=== PATIENT | female | born 1960 | race Hispanic/Latino ===

== ENCOUNTER 2019-07-15 06:02 | Day surgery (SDC) | payer OTHER, MEDICARE ==
[2019-07-15] VITALS (12 sets, daily range): BP systolic 100–121; BP diastolic 60–76
[~2019-07-15] VITALS: Ht 154.9 cm; Wt 70.3 kg
[2019-07-15] MEDS ORDERED: PROPOFOL 10 MG/ML 20ML VIAL IV ONE ×2 (06:33→06:34)
[2019-07-15] MEDS ORDERED: LIDOCAINE HCL 1% 20 ML VIAL ONE (06:34)
[2019-07-15] MEDS ORDERED: CEFAZOLIN SODIUM 1 GM VIAL ONE (06:58)
[2019-07-15] MEDS ORDERED: PHENYLEPHRINE HCL 10 MG/ML 1ML VIAL IV ONE (07:13)
[2019-07-15] MEDS ORDERED: SODIUM CHLORIDE 0.9% 10 ML VIAL ONE (07:14)
[2019-07-15] MEDS ORDERED: ONDA8TAB12 PO (08:26)
[2019-07-15] MEDS ORDERED: OMEP40CA13 PO (08:27)
[2019-07-15] MEDS ORDERED: ACYC400T PO (08:27)
[2019-07-15] MEDS ORDERED: ERGO50CA PO (08:27)
[2019-07-15] MEDS ORDERED: PANT40TA25 PO (08:28)
[2019-07-15] MEDS ORDERED: SERT50TA12 PO (08:28)
[2019-07-15] MEDS ORDERED: BUSP5TAB3 PO (08:28)
[2019-07-15] MEDS ORDERED: VITA-380 PO (08:29)
[2019-07-15] MEDS ORDERED: [UNRECOGNIZED DRUG - OTHER] PO (08:33)
== END 2019-07-15 08:15 | disposition home or self-care (01) ==
LOC: DAH 06:02
PROVIDERS: ATTEND Internal Medicine
DX: R13.10 Dysphagia, unspecified (principal); K29.70 Gastritis, unspecified, without bleeding; K31.89 Other diseases of stomach and duodenum; K44.9 Diaphragmatic hernia without obstruction or gangrene; K21.9 Gastro-esophageal reflux disease without esophagitis; M19.90 Unspecified osteoarthritis, unspecified site; M81.0 Age-related osteoporosis without current pathological fracture; H40.9 Unspecified glaucoma; K64.9 Unspecified hemorrhoids; R63.4 Abnormal weight loss; Z90.710 Acquired absence of both cervix and uterus; Z90.49 Acquired absence of other specified parts of digestive tract; Z98.890 Other specified postprocedural states; Z86.010 Personal history of colon polyps; Z79.899 Other long term (current) drug therapy; Z83.3 Family history of diabetes mellitus; Z82.49 Family history of ischemic heart disease and other diseases of the circulatory system
CPT/HCPCS: 43246; A4215 ×2; A4221 ×2; A4222 ×2; A4223 ×2; A4606 ×2; A4615 ×2; A4663 ×2; J0690; J2370; J2704 ×2

== ENCOUNTER → 2019-08-15 | Outpatient (CLI) | payer OTHER, MEDICARE ==
[~2019-08-15] MED LIST: ACYC400T PO; BUSP5TAB3 PO; DIATR MEGLU/DIATRIZOATE SODIUM 30 ML BOTTLE ONE; ERGO50CA PO; OMEP40CA13 PO; ONDA8TAB12 PO; PANT40TA25 PO; SERT50TA12 PO; VITA-380 PO; [UNRECOGNIZED DRUG - OTHER] PO
== END | disposition home or self-care (01) ==
LOC: RAH 08:06
PROVIDERS: ATTEND Internal Medicine Gastroenterology
DX: K94.20 Gastrostomy complication, unspecified (principal)
CPT/HCPCS: 74018; Q9963

== ENCOUNTER → 2019-12-20 | Outpatient (CLI) | payer OTHER, MEDICARE ==
[~2019-12-20] MED LIST changes: -DIATR MEGLU/DIATRIZOATE SODIUM 30 ML BOTTLE ONE
--- NOTE | 2019-12-20 12:32 | NUR ---
MBSS COMPLETED. ASPIRATION WITH THIN LIQUIDS AND NECTAR-THICK LIQUIDS VIA CUP SIP. RECOMMEND PLEASURE FEEDS OF PUREED AND NECTAR-THICK LIQUIDS VIA TSP. RECOMMENDATIONS: 1. SKILLED SPEECH THERAPY 2-3XWK 2. MBSS RE-EVAL IN 4-6 WEEKS NEONATAL INTENSIVE CARE UNIT NURSE PROVIDED RESULTS AND RECOMMENDATIONS VIA WRITTEN MODALITY. NEONATAL INTENSIVE CARE UNIT NURSE PROVIDED A CAN OF THICKENER AND THICKENING INSTRUCTIONS. ALL QUESTIONS ANSWERED AT THIS TIME. Addendum: 12/20/19 at 1237 by KD BRIAN, [facility] Amended: Links added.
== END | disposition home or self-care (01) ==
LOC: RAH 09:17
PROVIDERS: ATTEND Otolaryngology
DX: C32.9 Malignant neoplasm of larynx, unspecified (principal); R13.13 Dysphagia, pharyngeal phase
CPT/HCPCS: 74230; 92611

== ENCOUNTER → 2020-02-23 | Outpatient (CLI) | payer OTHER, MEDICARE ==
--- NOTE | 2020-02-23 10:00 | NUR ---
MBSS COMPLETED. RECOMMEND THE CONTINUATION OF [facility] ALTERNATE MEANS OF NUTRITION/HYDRATION. MAILER REVIEWED RESULTS WITH Pt AND DAUGHTER PRESENT DURING MBSS. SPEECH THERAPY WAS HIGHLY RECOMMENDED. ALL QUESTIONS ANSWERED AT THIS TIME. Addendum: 02/23/[address] [facility] Amended: Links added.
== END | disposition home or self-care (01) ==
LOC: RAH 08:52
PROVIDERS: ATTEND Otolaryngology
DX: R13.19 Other dysphagia (principal); Z90.02 Acquired absence of larynx
CPT/HCPCS: 74230; 92611

== ENCOUNTER → 2020-02-28 | Outpatient (CLI) | payer OTHER, MEDICARE ==
[~2020-02-28] MED LIST changes: +CICL60SU2 TP; +DIATR MEGLU/DIATRIZOATE SODIUM 30 ML BOTTLE ONE; -PANT40TA25 PO; +PANT40TA54 PO
== END | disposition home or self-care (01) ==
LOC: RAH 13:01
PROVIDERS: ATTEND Internal Medicine Gastroenterology
DX: K94.20 Gastrostomy complication, unspecified (principal)
CPT/HCPCS: 74018; Q9963

== ENCOUNTER → 2020-04-27 | Outpatient (CLI) | payer OTHER, MEDICARE ==
[~2020-04-27] MED LIST changes: -DIATR MEGLU/DIATRIZOATE SODIUM 30 ML BOTTLE ONE; +PANT40TA25 PO; -PANT40TA54 PO
[2020-04-27 14:49] LABS: CREATININE 0.7 mg/dL (0.5-1.5)
== END | disposition home or self-care (01) ==
LOC: LAB 14:08
PROVIDERS: ATTEND Internal Medicine
DX: C32.9 Malignant neoplasm of larynx, unspecified (principal); R22.1 Localized swelling, mass and lump, neck; Z85.21 Personal history of malignant neoplasm of larynx
CPT/HCPCS: 36415; 82565; 84520

== ENCOUNTER → 2020-05-03 | Outpatient (CLI) | payer OTHER, MEDICARE ==
[~2020-05-03] MED LIST changes: -CICL60SU2 TP; +IOHEXOL-350 50ML VIAL IV ONE
== END | disposition home or self-care (01) ==
LOC: RAH 12:14
PROVIDERS: ATTEND Otolaryngology
DX: M79.89 Other specified soft tissue disorders (principal); Z09 Encounter for follow-up examination after completed treatment for conditions other than malignant neoplasm; Z85.21 Personal history of malignant neoplasm of larynx
CPT/HCPCS: 70491; Q9967

== ENCOUNTER → 2020-05-15 | Outpatient (CLI) | payer OTHER, MEDICARE ==
[~2020-05-15] MED LIST changes: +DIATR MEGLU/DIATRIZOATE SODIUM 30 ML BOTTLE ONE; -IOHEXOL-350 50ML VIAL IV ONE
== END | disposition home or self-care (01) ==
LOC: RAH 12:03
PROVIDERS: ATTEND Internal Medicine Gastroenterology
DX: K94.20 Gastrostomy complication, unspecified (principal)
CPT/HCPCS: 74018; Q9963

== ENCOUNTER 2020-05-29 01:05 | Inpatient (IN) | payer OTHER, MEDICARE ==
[~2020-05-29] VITALS: Ht 154.9 cm; Wt 65.8 kg
[~2020-05-29 01:05] MED LIST changes: -DIATR MEGLU/DIATRIZOATE SODIUM 30 ML BOTTLE ONE; -PANT40TA25 PO; +PANT40TA54 PO
[2020-05-29 01:50] VITALS: BP 108/67
[2020-05-29] MEDS ORDERED: HYDROMORPHONE 1 MG/1 ML AMP IV PRN (02:30)
[2020-05-29] MEDS ORDERED: POTASSIUM CHLORIDE 20MEQ/100ML 100 ML IV PRN (02:30)
[2020-05-29] MEDS ORDERED: DiphenhydrAMINE HCL 50 MG/ML VIAL IV PRN (02:30)
[2020-05-29] MEDS ORDERED: LIDOCAINE HCL-MPF 1% 2ML VIAL IV PRN (02:30)
[2020-05-29] MEDS ORDERED: HYDRALAZINE HCL 20 MG/ML VIAL IV PRN (02:30)
[2020-05-29] MEDS ORDERED: ACETAMINOPHEN 650 MG SUPPOSITORY RC PRN (02:45)
[2020-05-29] MEDS ORDERED: HYDROMORPHONE HCL 0.5 MG/0.5 ML ML ONE (02:54)
[2020-05-29 03:51] VITALS: BP 95/60
[2020-05-29 08:09] VITALS: BP 118/66
[2020-05-29] MEDS: FAMOTIDINE/PF 20 MG/2 ML VIAL IV SCH ×2 (08:25→20:57)
[2020-05-29] MEDS: ENOXAPARIN SODIUM 40 MG/0.4 ML SYRINGE SQ SCH (08:26)
[2020-05-29 11:03] VITALS: BP 111/61
[2020-05-29] MEDS: MORPHINE SULFATE 2 MG/ML 1ML SYG IV PRN (11:21)
[2020-05-29] MEDS: SODIUM CHLORIDE 0.9% 1000ML 1,000 ML IV SCH ×2 (11:22→23:05)
[2020-05-29] MEDS: ONDANSETRON HCL 4 MG/2 ML VIAL IV PRN (11:28)
[2020-05-29 12:37] LABS: ALBUMIN 3.3 g/dL (3.5-5.0); BILIRUBIN,TOTAL 3.1 mg/dL (0.2-1.0); CREATININE 0.7 mg/dL (0.5-1.5); POTASSIUM 3.8 mmol/L (3.5-5.1); TOTAL PROTEIN, SERUM 6.9 g/dL (6.0-8.3)
[2020-05-29 13:57] LABS: BILIRUBIN,DIRECT 1.4 mg/dL (0.0-0.3)
[2020-05-29 16:22] VITALS: BP 116/71
[2020-05-29 20:00] VITALS: BP 125/66
[2020-05-30] VITALS (7 sets, daily range): BP systolic 109–124; BP diastolic 52–83
[2020-05-30 03:44] LABS: BASOPHILS % (AUTO) 0.3 % (0.0-5.0); HEMATOCRIT 34.6 % (36-48); MEAN CORPUSCULAR HEMOGLOBIN 28.1 pg (27.0-33.0); MEAN CORPUSCULAR HGB CONC 31.8 g/dL (32.0-36.0); MEAN CORPUSCULAR VOLUME 88.5 fL (79-99); NEUTROPHILS % (AUTO) 77.5 % (40.0-77.0); PLATELET COUNT (AUTO) 192 K/uL (130-400); RED BLOOD CELL COUNT(AUTO) 3.91 MIL/uL (4.00-5.50); RED CELL DISTRIBUTION WIDTH 13.3 % (11.0-15.5); WHITE BLOOD COUNT (AUTO) 5.8 K/uL (4.8-10.8)
[2020-05-30 04:04] LABS: ALBUMIN 3.2 g/dL (3.5-5.0); CREATININE 0.6 mg/dL (0.5-1.5); MAGNESIUM 2.5 mg/dL (1.80-2.40); PHOSPHORUS 2.6 mg/dL (2.5-4.9); TOTAL PROTEIN, SERUM 6.8 g/dL (6.0-8.3)
[2020-05-30] MEDS: ONDANSETRON HCL 4 MG/2 ML VIAL IV PRN ×2 (08:01→21:38)
[2020-05-30] MEDS: ENOXAPARIN SODIUM 40 MG/0.4 ML SYRINGE SQ SCH (08:01)
[2020-05-30] MEDS: FAMOTIDINE/PF 20 MG/2 ML VIAL IV SCH ×2 (08:01→21:38)
[2020-05-30] MEDS ORDERED: HYDROMORPHONE HCL 0.5 MG/0.5 ML ML ONE (08:05)
[2020-05-30] MEDS: SODIUM CHLORIDE 0.9% 1000ML 1,000 ML IV SCH ×2 (08:15→18:41)
--- NOTE | 2020-05-30 13:43 | NUR ---
DCP- SPOKE TO SISTER KATIE VIA PHONE WENT TO ROOM TO SPEAK TO PATIENT- UNABLE TO VOCALIZE- CALL TO SISTER KATIE FOR IA. STATES THAT SISTER HAD CANCER ABOUT 3 YEARS AGO- LIVES ALONE, MOBILITY GOOD, HAS SHOWER CHAIR BUT NO OTHER DME. STATES IS PROVIDER X25 HR/WK AND DOES ALL THE DRIVING FOR PATIENT. FOLLOWS W DR. JOSEPH, LAST APPOINTMENT 2 WKS AGO. [facility], [facility]. Addendum: 05/31/20 at 1347 by ESTEPHANIE LEWIS RN CM Amended: Links added.
--- NOTE | 2020-05-30 15:38 | NUR ---
CHART CHECK COMPLETED. Pt IS A 59 Y.O. FEMALE ADMITTED SECONDARY TO ACUTE PANCREATITIS. 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 Pt CURRENTLY ON NPO. LAST MBSS PREFORMED AT THIS FACILITY ON 02/23/2020 PLEASE CONTINUE RECOMMENDATIONS OF NPO, LONG-TERM ALTERNATE MEANS OF NUTRITION AT THIS TIME. Addendum: 05/30/20 at 1541 by KD BRIAN, [facility] Amended: Links added.
--- NOTE | 2020-05-30 21:38 | NUR ---
NOTE PATIENT HAD 2 SMALL EMESIS. GREEN IN COLOR. DENIES PAIN. SAYS SHE HAS GASES. MEDICATED WITH ZOFRAN.
[2020-05-31 03:47] LABS: BASOPHILS % (AUTO) 0.4 % (0.0-5.0); EOSINOPHILS % (AUTO) 1.3 % (0.0-8.0); HEMATOCRIT 37.1 % (36-48); LYMPHOCYTES % (AUTO) 11.6 % (21.0-51.0); MEAN CORPUSCULAR HEMOGLOBIN 28.7 pg (27.0-33.0); MEAN CORPUSCULAR HGB CONC 32.1 g/dL (32.0-36.0); MEAN CORPUSCULAR VOLUME 89.4 fL (79-99); MONOCYTES % (AUTO) 7.1 % (3.0-13.0); NEUTROPHILS % (AUTO) 79.2 % (40.0-77.0); PLATELET COUNT (AUTO) 133 K/uL (130-400); RED BLOOD CELL COUNT(AUTO) 4.15 MIL/uL (4.00-5.50); RED CELL DISTRIBUTION WIDTH 13.2 % (11.0-15.5); WHITE BLOOD COUNT (AUTO) 5.3 K/uL (4.8-10.8)
[2020-05-31 03:52] VITALS: BP 119/60
--- NOTE | 2020-05-31 04:02 | NUR ---
NOTE PATIENT HAD AND EMESIS. GREEN. SMALL AMOUNT. MEDICATED WITH ZOFRAN. DENIES ANY PAIN.
[2020-05-31] MEDS: ONDANSETRON HCL 4 MG/2 ML VIAL IV PRN ×3 (04:07→17:40)
[2020-05-31 04:12] LABS: ALBUMIN 3.4 g/dL (3.5-5.0); BILIRUBIN,DIRECT 0.5 mg/dL (0.0-0.3); BILIRUBIN,TOTAL 2.4 mg/dL (0.2-1.0); CREATININE 0.7 mg/dL (0.5-1.5); POTASSIUM 4.1 mmol/L (3.5-5.1); TOTAL PROTEIN, SERUM 7.4 g/dL (6.0-8.3)
[2020-05-31] MEDS: SODIUM CHLORIDE 0.9% 1000ML 1,000 ML IV SCH ×3 (04:25→22:29)
[2020-05-31] MEDS ORDERED: HYDROMORPHONE HCL 0.5 MG/0.5 ML ML ONE (08:33)
[2020-05-31 08:52] VITALS: BP 114/60
[2020-05-31] MEDS: FAMOTIDINE/PF 20 MG/2 ML VIAL IV SCH ×2 (09:39→22:24)
[2020-05-31] MEDS: ENOXAPARIN SODIUM 40 MG/0.4 ML SYRINGE SQ SCH (09:40)
[2020-05-31 13:30] VITALS: BP 119/72
[2020-05-31 16:46] VITALS: BP 107/73
[2020-05-31 20:23] VITALS: BP 116/65
[2020-05-31] MEDS: METOCLOPRAMIDE 10 MG/2 ML VIAL IVP SCH (22:24)
[2020-05-31] MEDS: MORPHINE SULFATE 2 MG/ML 1ML SYG IV PRN (22:25)
[2020-06-01] VITALS (20 sets, daily range): BP systolic 94–129; BP diastolic 48–72
[2020-06-01] MEDS: ONDANSETRON HCL 4 MG/2 ML VIAL IV PRN (00:37)
[2020-06-01 04:34] LABS: BASOPHILS % (AUTO) 0.3 % (0.0-5.0); EOSINOPHILS % (AUTO) 0.7 % (0.0-8.0); LYMPHOCYTES % (AUTO) 14.3 % (21.0-51.0); MEAN CORPUSCULAR HEMOGLOBIN 28.2 pg (27.0-33.0); MEAN CORPUSCULAR HGB CONC 31.7 g/dL (32.0-36.0); MEAN CORPUSCULAR VOLUME 89.1 fL (79-99); MONOCYTES % (AUTO) 7.7 % (3.0-13.0); NEUTROPHILS % (AUTO) 76.8 % (40.0-77.0); PLATELET COUNT (AUTO) 161 K/uL (130-400); RED BLOOD CELL COUNT(AUTO) 3.93 MIL/uL (4.00-5.50); RED CELL DISTRIBUTION WIDTH 13.2 % (11.0-15.5); WHITE BLOOD COUNT (AUTO) 5.9 K/uL (4.8-10.8)
[2020-06-01 05:08] LABS: ALBUMIN 3.3 g/dL (3.5-5.0); BILIRUBIN,DIRECT 0.4 mg/dL (0.0-0.3); BILIRUBIN,TOTAL 1.7 mg/dL (0.2-1.0); CREATININE 0.6 mg/dL (0.5-1.5); POTASSIUM 4.1 mmol/L (3.5-5.1); TOTAL PROTEIN, SERUM 7.4 g/dL (6.0-8.3)
[2020-06-01] MEDS: FAMOTIDINE/PF 20 MG/2 ML VIAL IV SCH ×2 (09:00→20:25)
[2020-06-01] MEDS: ENOXAPARIN SODIUM 40 MG/0.4 ML SYRINGE SQ SCH (09:00)
[2020-06-01] MEDS: METOCLOPRAMIDE 10 MG/2 ML VIAL IVP SCH ×3 (09:00→20:25)
[2020-06-01] MEDS ORDERED: METOCLOPRAMIDE 10 MG/2 ML VIAL IVP SCH (09:30)
[2020-06-01] MEDS ORDERED: ONDANSETRON HCL 4 MG/2 ML VIAL IVP SCH (09:30)
[2020-06-01] MEDS: SODIUM CHLORIDE 0.9% 1000ML 1,000 ML IV SCH ×2 (10:25→20:25)
--- NOTE | 2020-06-01 12:08 | NUR ---
RDSCREEN - LOS X 3 DAYS Pt admitted with Acute Pancreatitis. Pt history of malignant neoplasm of the neck, tracheostomy, Dysphagia with history of J-Tube. Pt with Nausea/vomiting. Pending GI consult. Monitored labs: BG 69, Lipase 1102. Recommend continue long-term alternate means nutrition as medically feasible. RD to continue to monitor. Please notify as additional nutrition concerns arise. Thank you. Addendum: 06/01/20 at [address] Amended: Links added.
[2020-06-02 03:58] VITALS: BP 98/56
[2020-06-02 05:16] LABS: HEMATOCRIT 34.6 % (36-48); MEAN CORPUSCULAR HEMOGLOBIN 28.4 pg (27.0-33.0); MEAN CORPUSCULAR HGB CONC 32.4 g/dL (32.0-36.0); MEAN CORPUSCULAR VOLUME 87.6 fL (79-99); RED BLOOD CELL COUNT(AUTO) 3.95 MIL/uL (4.00-5.50); RED CELL DISTRIBUTION WIDTH 13.2 % (11.0-15.5); WHITE BLOOD COUNT (AUTO) 5.4 K/uL (4.8-10.8)
[2020-06-02 05:50] LABS: ALBUMIN 3.4 g/dL (3.5-5.0); BILIRUBIN,DIRECT 0.3 mg/dL (0.0-0.3); BILIRUBIN,TOTAL 1.5 mg/dL (0.2-1.0); CREATININE 0.6 mg/dL (0.5-1.5); POTASSIUM 3.9 mmol/L (3.5-5.1); TOTAL PROTEIN, SERUM 7.3 g/dL (6.0-8.3)
[2020-06-02 08:00] VITALS: BP 98/62
[2020-06-02 11:00] VITALS: BP 92/53
[2020-06-02] MEDS: FAMOTIDINE/PF 20 MG/2 ML VIAL IV SCH ×2 (11:24→21:00)
[2020-06-02] MEDS: ENOXAPARIN SODIUM 40 MG/0.4 ML SYRINGE SQ SCH (11:24)
[2020-06-02 16:00] VITALS: BP 93/41
--- NOTE | 2020-06-02 19:30 | NUR ---
PATIENT RECEIVED IN BED, AAOX3, NO ACUTE DISTRESS NOTED. POC DISCUSSED WITH PT. PATIENT TO NOTIFY NURSE OF HER NEXT FEEDING TIME. AT THIS TIME, SHE FEELS FULL. WILL CONT TO MONITOR CLOSELY.
[2020-06-02 20:00] VITALS: BP 93/55
[2020-06-02] MEDS: METOCLOPRAMIDE 10 MG/2 ML VIAL IVP SCH (21:00)
[2020-06-02] MEDS: SODIUM CHLORIDE 0.9% 1000ML 1,000 ML IV SCH (21:19)
[2020-06-02 23:32] VITALS: BP 102/58
[2020-06-03] MEDS: SODIUM CHLORIDE 0.9% 1000ML 1,000 ML IV SCH ×2 (02:25→09:22)
[2020-06-03 03:57] LABS: HEMATOCRIT 32.1 % (36-48); MEAN CORPUSCULAR HEMOGLOBIN 28.2 pg (27.0-33.0); MEAN CORPUSCULAR HGB CONC 32.7 g/dL (32.0-36.0); MEAN CORPUSCULAR VOLUME 86.3 fL (79-99); RED BLOOD CELL COUNT(AUTO) 3.72 MIL/uL (4.00-5.50); RED CELL DISTRIBUTION WIDTH 13.3 % (11.0-15.5); WHITE BLOOD COUNT (AUTO) 4.1 K/uL (4.8-10.8)
[2020-06-03 04:00] VITALS: BP 110/58
[2020-06-03 04:12] LABS: BILIRUBIN,TOTAL 1.4 mg/dL (0.2-1.0); CREATININE 0.6 mg/dL (0.5-1.5); MAGNESIUM 2.2 mg/dL (1.80-2.40); PHOSPHORUS 2.1 mg/dL (2.5-4.9); POTASSIUM 3.6 mmol/L (3.5-5.1); TOTAL PROTEIN, SERUM 6.5 g/dL (6.0-8.3)
--- NOTE | 2020-06-03 07:45 | NUR ---
ADMINISTERED TUBE FEEDING VERIFIED PLACEMENT OF J-TUBE VIA AUSCULTATION AND AIR BOLUS. NO RESIDUAL AMOUNT NOTED. ADMINISTERED 70 ML OF WATER, FOLLOWED BY ONE CAN OF "TWO LANNY HN". FLUSHED WITH 30 ML OF WATER TO CLEAR TUBE. INSTRUCTED PATIENT TO NOTIFY ME IF ANY ABDOMINAL DISCOMFORTS APPEAR AFTER RECEIVING FEEDING.
[2020-06-03 08:00] VITALS: BP 98/59
[2020-06-03] MEDS: FAMOTIDINE/PF 20 MG/2 ML VIAL IV SCH (09:07)
[2020-06-03] MEDS: METOCLOPRAMIDE 10 MG/2 ML VIAL IVP SCH (09:07)
[2020-06-03] MEDS: ENOXAPARIN SODIUM 40 MG/0.4 ML SYRINGE SQ SCH (09:08)
[2020-06-03 11:00] VITALS: BP 93/59
--- NOTE | 2020-06-03 13:00 | NUR ---
TOLERATING TUBE FEEDING SENIOR UX DEVELOPER NOT AVAILABLE ON WEEKEND TO GIVE RECOMMENDATIONS ON TUBE FEEDING. PATIENT REPORTS WHEN PERFORMING TUBE BOLUS FEEDINGS AT HOME, SHE ADMINISTERS 70 ML OF WATER, FOLLOWED BY ONE CAN OF "TWO LANNY HN". I VERIFIED PLACEMENT OF J-TUBE VIA AUSCULTATION AND AIR BOLUS. NO RESIDUAL AMOUNT NOTED. ADMINISTERED 70 ML OF WATER, FOLLOWED BY ONE CAN OF "TWO LANNY HN". FLUSHED WITH 30 ML OF WATER TO CLEAR TUBE. INSTRUCTED PATIENT TO NOTIFY ME IF ANY ABDOMINAL DISCOMFORTS APPEAR AFTER RECEIVING FEEDING. APPROXIMATELY 2 HOURS AFTER ADMINISTERING TUBE FEEDING PATIENT REPORTS NO PAIN OR DISCOMFORTS. Addendum: 06/03/20 at 1434 by CAPRI MCLEAN RN RN WRONG DATE AND TIME CORRECT DATE AND TIME 06/02/20 AT 1300, THIS NOTE WAS FIRST TUBE FEEDING ADMINISTERED AFTER GIVEN OKAY TO RESUME FEEDING ORDER.
--- NOTE | 2020-06-03 14:00 | NUR ---
PRESCRIPTION REQUESTED PATIENT WANTED ME TO ASK ADMITTING MD IF SHE COULD BE GIVEN A PRESCRIPTION FOR NAIL FUNGUS. I CALLED Johnathon ESPINOSA NP FOR DR. ESCAMILLA AND SHE TOLD ME SHE WOULD ADD A PRESCRIPTION TO DISCHARGE ORDER.
[2020-06-03] MEDS ORDERED: CICL60SU2 TP (14:27)
== END 2020-06-03 16:30 | disposition home or self-care (01) | DRG 440 ==
LOC: OBSVTOIN 01:51 → 3AH 01:51
PROVIDERS: ADMIT Internal Medicine Critical Care Medicine; ATTEND Internal Medicine Critical Care Medicine
PROC: 0DJ08ZZ Inspection of Upper Intestinal Tract, Via Natural or Artificial Opening Endoscopic (ICD-10-PCS; principal; 2020-06-01)
DX: K85.90 Acute pancreatitis without necrosis or infection, unspecified (principal); R13.10 Dysphagia, unspecified; C76.0 Malignant neoplasm of head, face and neck; R74.0 Nonspecific elevation of levels of transaminase and lactic acid dehydrogenase [LDH]; K59.00 Constipation, unspecified; Z93.0 Tracheostomy status; Z68.27 Body mass index [BMI] 27.0-27.9, adult
CPT/HCPCS: 36415; 43200; 71045; 74150; 74181; 76705; 80053; 80076; 82150; 82248; 83690; 83735; 84100; 84478; 85025; 85027; A4606; G0378; J1170; J1650; J2405; J2765; J3490; J7030

== ENCOUNTER 2020-09-07 13:51 | Emergency (ER) | payer OTHER, MEDICARE ==
[~2020-09-07 13:51] MED LIST changes: -ACYC400T PO; +CICL60SU2 TP; -PANT40TA54 PO; -[UNRECOGNIZED DRUG - OTHER] PO
== END 2020-09-07 15:31 | disposition home or self-care (01) ==
LOC: EDH 13:51
DX: K94.23 Gastrostomy malfunction (principal)
CPT/HCPCS: 99281

== ENCOUNTER → 2021-02-19 | Outpatient (CLI) | payer OTHER, MEDICARE ==
[~2021-02-19] MED LIST changes: +DIATR MEGLU/DIATRIZOATE SODIUM 30 ML BOTTLE ONE; +SERT-439 PO; -SERT50TA12 PO
== END | disposition home or self-care (01) ==
LOC: RAH 12:51
PROVIDERS: ATTEND Internal Medicine
DX: K94.20 Gastrostomy complication, unspecified (principal)
CPT/HCPCS: 74018; Q9963

== ENCOUNTER 2021-09-10 07:00 | Day surgery (SDC) | payer OTHER, MEDICARE ==
[~2021-09-10] VITALS: Ht 152.4 cm; Wt 66.2 kg
[~2021-09-10 07:00] MED LIST changes: +ASCO500T20 PO; -BUSP5TAB3 PO; -CICL60SU2 TP; -DIATR MEGLU/DIATRIZOATE SODIUM 30 ML BOTTLE ONE; -ERGO50CA PO; +FAMO40TA7 PO; +FLUT16H NASAL; +LATA7.5D OU; +LEVO50CA4 PO; +LEVO5TAB13 PO; +MUPI22OI2 TP; -OMEP40CA13 PO; -ONDA8TAB12 PO; +PRAV20TA4 PO; -SERT-439 PO; +TRAZ-185 PO; -VITA-380 PO; +VITAMIN D PEG
[2021-09-10] MEDS ORDERED: 0.9%NACL 1000ML 1,000 ML IV ONE (07:42)
[2021-09-10 08:08] VITALS: BP 96/68
[2021-09-10] MEDS ORDERED: LIDOCAINE HCL 1% 20 ML VIAL ONE (09:13)
[2021-09-10] MEDS ORDERED: PROPOFOL 10 MG/ML 20ML VIAL IV ONE (09:13)
[2021-09-10] MEDS ORDERED: EPINEPHRINE PF 1MG AMP ONE (09:14)
[2021-09-10 09:40] VITALS: BP 72/29
[2021-09-10 09:45] VITALS: BP 97/59
[2021-09-10 09:57] VITALS: BP 108/60
== END 2021-09-10 09:58 | disposition home or self-care (01) ==
LOC: ENDO 07:00 → DAH 07:00 → ENDO 09:58 → EDSTATUS 10:08
PROVIDERS: ATTEND Internal Medicine Gastroenterology
DX: Z12.11 Encounter for screening for malignant neoplasm of colon (principal); D12.2 Benign neoplasm of ascending colon; Z86.010 Personal history of colon polyps; K94.20 Gastrostomy complication, unspecified; R11.0 Nausea; R13.12 Dysphagia, oropharyngeal phase; R94.5 Abnormal results of liver function studies; K22.2 Esophageal obstruction; K21.9 Gastro-esophageal reflux disease without esophagitis; K44.9 Diaphragmatic hernia without obstruction or gangrene; M19.90 Unspecified osteoarthritis, unspecified site; Z90.710 Acquired absence of both cervix and uterus; Z98.890 Other specified postprocedural states; Z79.899 Other long term (current) drug therapy; Z20.822 Contact with and (suspected) exposure to COVID-19
CPT/HCPCS: 45385; 87635; A4215 ×2; A4221; A4222; A4223; A4606; A4620; A4663; C9803; J0171; J2704; J7030

== ENCOUNTER → 2021-09-18 | Outpatient (CLI) | payer OTHER, MEDICARE ==
[~2021-09-18] MED LIST changes: +IOHEXOL 350 MG/ML 100ML INFUS..BTL IV ONE
== END | disposition home or self-care (01) ==
LOC: RAH 07:32
PROVIDERS: ATTEND Internal Medicine Gastroenterology
DX: K94.20 Gastrostomy complication, unspecified (principal); I70.8 Atherosclerosis of other arteries; M47.815 Spondylosis without myelopathy or radiculopathy, thoracolumbar region
CPT/HCPCS: 74170; Q9967

== ENCOUNTER 2021-09-26 10:51 | Day surgery (SDC) | payer OTHER, MEDICARE ==
[2021-09-26] VITALS (19 sets, daily range): BP systolic 94–134; BP diastolic 47–90
[~2021-09-26] VITALS: Ht 162.6 cm; Wt 65.6 kg
[~2021-09-26 10:51] MED LIST changes: -IOHEXOL 350 MG/ML 100ML INFUS..BTL IV ONE
[2021-09-26 11:18] LABS: BASOPHILS % (AUTO) 0.6 % (0.0-5.0); EOSINOPHILS % (AUTO) 3.5 % (0.0-8.0); HEMATOCRIT 40.3 % (36-48); LYMPHOCYTES % (AUTO) 22.5 % (21.0-51.0); MEAN CORPUSCULAR HEMOGLOBIN 29.4 pg (27.0-33.0); MEAN CORPUSCULAR HGB CONC 32.8 g/dL (32.0-36.0); MEAN CORPUSCULAR VOLUME 89.8 fL (79-99); MONOCYTES % (AUTO) 7.2 % (3.0-13.0); PLATELET COUNT (AUTO) 205 K/uL (130-400); RED BLOOD CELL COUNT(AUTO) 4.49 MIL/uL (4.00-5.50); RED CELL DISTRIBUTION WIDTH 12.3 % (11.0-15.5); WHITE BLOOD COUNT (AUTO) 5.2 K/uL (4.8-10.8)
[2021-09-26 11:28] LABS: CREATININE 0.8 mg/dL (0.5-1.5); POTASSIUM 4.8 mmol/L (3.5-5.1)
[2021-09-26 12:01] LABS: INR 0.95 (0.85-1.15); PROTHROMBIN TIME 10.4 SEC (9.6-11.6)
[2021-09-26 12:03] LABS: PARTIAL THROMBOPLASTIN TIME 31.5 SEC (26.3-35.5)
[2021-09-26] MEDS ORDERED: LACTATED RINGERS 1000ML 1,000 ML IV ONE (12:12)
[2021-09-26] MEDS ORDERED: CEFAZOLIN SODIUM 1 GM VIAL ONE (12:12)
[2021-09-26] MEDS ORDERED: SUCCINYLCHOLINE CHLORIDE 20 MG/ML 10 ML VIAL ONE (13:05)
[2021-09-26] MEDS ORDERED: LIDOCAINE PF 100MG/5ML (2%) SYRINGE 5ML ONE (13:05)
[2021-09-26] MEDS ORDERED: PROPOFOL 10 MG/ML 20ML VIAL IV ONE (13:05)
[2021-09-26] MEDS ORDERED: FENTANYL CITRATE PF 50 MCG/1 ML 2ML VIAL ONE (13:06)
[2021-09-26] MEDS ORDERED: NEOSTIGMINE 5MG/5ML SYR IV ONE (13:35)
[2021-09-26] MEDS ORDERED: GLYCOPYRROLATE 1 MG/5 ML SYRINGE ONE (13:35)
[2021-09-26] MEDS ORDERED: CEFAZOLIN SODIUM 2 GM VIAL IV ONE (13:36)
[2021-09-26] MEDS ORDERED: EPINEPHRINE 1 MG/ML 30ML VIAL IJ ONE (13:48)
== END 2021-09-26 16:20 | disposition home or self-care (01) ==
LOC: DAH 10:51
PROVIDERS: ATTEND Otolaryngology
DX: K22.2 Esophageal obstruction (principal); Z20.822 Contact with and (suspected) exposure to COVID-19; K21.9 Gastro-esophageal reflux disease without esophagitis; R11.0 Nausea; K22.5 Diverticulum of esophagus, acquired; E78.00 Pure hypercholesterolemia, unspecified; G43.909 Migraine, unspecified, not intractable, without status migrainosus; E66.3 Overweight; Z90.49 Acquired absence of other specified parts of digestive tract; Z90.710 Acquired absence of both cervix and uterus; Z98.890 Other specified postprocedural states; Z68.28 Body mass index [BMI] 28.0-28.9, adult; Z85.9 Personal history of malignant neoplasm, unspecified; Z85.12 Personal history of malignant neoplasm of trachea; Z79.01 Long term (current) use of anticoagulants
CPT/HCPCS: 31528; 36415; 71045; 80048; 85025; 85610; 85730; 87635; 93005; A4215; A4221; A4222; A4223; A4600; A4663; A4930; C1725; J0171; J0330; J0690 ×2; J2001; J2704; J2710; J3010; J3490; J7120

== ENCOUNTER 2022-01-02 05:54 | Day surgery (SDC) | payer OTHER, MEDICARE ==
[2021-12-31 13:09] LABS: BASOPHILS % (AUTO) 0.8 % (0.0-5.0); EOSINOPHILS % (AUTO) 4.8 % (0.0-8.0); HEMATOCRIT 37.4 % (36-48); LYMPHOCYTES % (AUTO) 34.3 % (21.0-51.0); MEAN CORPUSCULAR HEMOGLOBIN 29.7 pg (27.0-33.0); MEAN CORPUSCULAR HGB CONC 32.4 g/dL (32.0-36.0); MEAN CORPUSCULAR VOLUME 91.9 fL (79-99); MONOCYTES % (AUTO) 8.5 % (3.0-13.0); NEUTROPHILS % (AUTO) 51.3 % (40.0-77.0); PLATELET COUNT (AUTO) 178 K/uL (130-400); RED BLOOD CELL COUNT(AUTO) 4.07 MIL/uL (4.00-5.50); RED CELL DISTRIBUTION WIDTH 12.4 % (11.0-15.5); WHITE BLOOD COUNT (AUTO) 3.8 K/uL (4.8-10.8)
[2021-12-31 13:19] LABS: CREATININE 0.9 mg/dL (0.5-1.5); POTASSIUM 4.6 mmol/L (3.5-5.1)
[2021-12-31 13:21] LABS: INR 0.99 (0.85-1.15); PROTHROMBIN TIME 10.8 SEC (9.6-11.6)
[2021-12-31 13:22] LABS: PARTIAL THROMBOPLASTIN TIME 29.5 SEC (26.3-35.5)
[2022-01-01 09:22] VITALS: BP 85/53
[~2022-01-02] VITALS: Ht 152.4 cm; Wt 65.5 kg
[2022-01-02] VITALS (16 sets, daily range): BP systolic 95–119; BP diastolic 54–66
[2022-01-02] MEDS ORDERED: CEFAZOLIN SODIUM 1 GM VIAL ONE (06:10)
[2022-01-02] MEDS ORDERED: LACTATED RINGERS 1000ML 1,000 ML IV ONE (06:10)
[2022-01-02] MEDS ORDERED: CHOL100046 PO (06:37)
[2022-01-02] MEDS ORDERED: OMEP20CA12 PO (06:38)
[2022-01-02] MEDS ORDERED: CARB10DR5 OP (06:38)
[2022-01-02] MEDS: CEFAZOLIN SODIUM 2 GM VIAL IV SCH ×2 (06:49→08:03)
[2022-01-02] MEDS ORDERED: OXYMETAZOLINE HCL SPRAY 15 ML BOTTLE ONE (07:02)
[2022-01-02] MEDS ORDERED: LIDOCAINE 1%-EPI 1:100,000 20 ML VIAL IJ ONE (07:02)
[2022-01-02] MEDS ORDERED: EPINEPHRINE 1 MG/ML 30ML VIAL IJ ONE (07:02)
[2022-01-02] MEDS ORDERED: LIDOCAINE PF 100MG/5ML (2%) SYRINGE 5ML ONE (07:47)
[2022-01-02] MEDS ORDERED: FENTANYL CITRATE PF 50 MCG/1 ML 2ML VIAL ONE (07:48)
[2022-01-02] MEDS ORDERED: PROPOFOL 10 MG/ML 20ML VIAL IV ONE (07:48)
[2022-01-02] MEDS ORDERED: MIDAZOLAM HCL 1 MG/ML 2ML VIAL ONE (07:48)
[2022-01-02] MEDS ORDERED: ROCURONIUM 10MG/1ML SYR 10 MG/ML ML ONE (07:48)
[2022-01-02] MEDS ORDERED: EPHEDRINE SULFATE 50 MG/ML AMPULE ONE (08:08)
[2022-01-02] MEDS ORDERED: DEXAMETHASONE SOD PHOSPHATE 10MG/ML 1ML VIAL ONE (08:17)
[2022-01-02] MEDS ORDERED: SUGAMMADEX SODIUM 200 MG/2 ML VIAL IV ONE (08:39)
[2022-01-02] MEDS ORDERED: MEPERIDINE-PF 25 MG/ML SYG ONE ×2 (08:57→09:19)
== END 2022-01-02 10:25 | disposition home or self-care (01) ==
LOC: DAH 05:54
PROVIDERS: ATTEND Otolaryngology
DX: K22.2 Esophageal obstruction (principal); Z20.822 Contact with and (suspected) exposure to COVID-19; E66.9 Obesity, unspecified; Z79.899 Other long term (current) drug therapy; Z79.01 Long term (current) use of anticoagulants; Z98.890 Other specified postprocedural states; Z92.3 Personal history of irradiation; Z85.21 Personal history of malignant neoplasm of larynx
CPT/HCPCS: 31528; 36415; 71045; 80048; 85025; 85610; 85730; 87635; 93005; A4215; A4221; A4222; A4223; A4663; A6260; C1725; C1726; C9803; J0690; J1100; J2001; J2175 ×2; J2250; J2704; J3010; J3490; J7030; J7120; J0171

== ENCOUNTER 2022-06-03 15:22 | Emergency (ER) | payer OTHER, MEDICARE ==
[~2022-06-03 15:22] MED LIST changes: -ASCO500T20 PO; +CARB10DR5 OP; +CHOL100046 PO; -MUPI22OI2 TP; +OMEP20CA12 PO; -VITAMIN D PEG
[2022-06-03 15:55] LABS: BASOPHILS % (AUTO) 0.6 % (0.0-5.0); EOSINOPHILS % (AUTO) 1.7 % (0.0-8.0); HEMATOCRIT 35.8 % (36-48); LYMPHOCYTES % (AUTO) 26.2 % (21.0-51.0); MEAN CORPUSCULAR HEMOGLOBIN 29.6 pg (27.0-33.0); MEAN CORPUSCULAR VOLUME 89.9 fL (79-99); MONOCYTES % (AUTO) 7.1 % (3.0-13.0); PLATELET COUNT (AUTO) 158 K/uL (130-400); RED BLOOD CELL COUNT(AUTO) 3.98 MIL/uL (4.00-5.50); RED CELL DISTRIBUTION WIDTH 12.2 % (11.0-15.5); WHITE BLOOD COUNT (AUTO) 5.2 K/uL (4.8-10.8)
[2022-06-03 16:05] LABS: CREATININE 0.8 mg/dL (0.5-1.5); POTASSIUM 4.3 mmol/L (3.5-5.1)
[2022-06-03 16:11] LABS: ALBUMIN 3.5 g/dL (3.5-5.0); TOTAL PROTEIN, SERUM 6.6 g/dL (6.0-8.3)
[2022-06-03 16:42] LABS: APPEARANCE,URINE CLEAR (CLEAR); BILIRUBIN,URINE NEGATIVE (NEGATIVE); COLOR,URINE YELLOW (YELLOW); GLUCOSE, URINE (UA) NEGATIVE (NEGATIVE); KETONES,URINE NEGATIVE (NEGATIVE); LEUKOCYTE ESTERASE ,URINE TRACE (NEGATIVE); NITRATE,URINE NEGATIVE (NEGATIVE); OCCULT BLOOD,URINE NEGATIVE (NEGATIVE); PROTEIN,URINE NEGATIVE (NEGATIVE); UROBILINOGEN,URINE 0.2 mg/dL (0.2-1.0)
[2022-06-03 17:20] LABS: BACTERIA,URINE Few /HPF (None Seen); RBC,URINE 0-1 /HPF (0-1); SQUAMOUS EPITHELIAL CELL,UR Few /HPF (0-2); TRANSITIONAL EPI CELLS,URINE Rare /HPF (None Seen)
[2022-06-03] MEDS ORDERED: CEPH500B PO (17:26)
[2022-06-03] MEDS ORDERED: 0.9% NACL 500ML IV.SOLN 500 ML IV ONE (17:30)
[2022-06-03 18:15] VITALS: BP 102/64
== END 2022-06-03 18:17 | disposition home or self-care (01) ==
LOC: EDH 15:22
DX: N39.0 Urinary tract infection, site not specified (principal)
CPT/HCPCS: 99285; 71045; 84484; 80053; 85025; 81001; 36415; 93005; J7040

== ENCOUNTER 2024-02-11 05:46 | Day surgery (SDC) | payer OTHER, MEDICARE ==
[~2024-02-11] VITALS: Ht 152.4 cm; Wt 67.6 kg
[2024-02-11] VITALS (9 sets, daily range): BP systolic 98–113; BP diastolic 49–63; PULSE 60–70; RESP 16–19
[~2024-02-11 05:46] MED LIST changes: +ASCO500T92 PO; -CARB10DR5 OP; +DOCU100C33 PO; +FISH1CAP20 PO; -FLUT16H NASAL; -LATA7.5D OU; -LEVO50CA4 PO; +LEVO75TA10 PO; +LOTE8.3D OU; +NEO/5DRO4 OU; +SERT-439 PO; +VITA100049 PO
[2024-02-11] MEDS: 0.9%NACL 1000ML 1,000 ML IV ONE (06:51)
[2024-02-11] MEDS ORDERED: PROPOFOL 10 MG/ML 20ML VIAL IV ONE (07:17)
[2024-02-11] MEDS ORDERED: PHENYLEPHRINE HCL 10 MG/ML 1ML VIAL IV ONE (07:47)
[2024-02-11] MEDS ORDERED: EPHEDRINE SULFATE 50 MG/ML AMPULE ONE (07:47)
== END 2024-02-11 08:57 | disposition home or self-care (01) ==
LOC: DAH 05:46 → ENDO 05:46
PROVIDERS: ATTEND Internal Medicine Gastroenterology
DX: Z09 Encounter for follow-up examination after completed treatment for conditions other than malignant neoplasm (principal); K63.5 Polyp of colon; K56.2 Volvulus; K57.30 Diverticulosis of large intestine without perforation or abscess without bleeding; K64.0 First degree hemorrhoids; K21.9 Gastro-esophageal reflux disease without esophagitis; K22.2 Esophageal obstruction; K44.9 Diaphragmatic hernia without obstruction or gangrene; R94.5 Abnormal results of liver function studies; M81.0 Age-related osteoporosis without current pathological fracture; M19.90 Unspecified osteoarthritis, unspecified site; E55.9 Vitamin D deficiency, unspecified; Z90.710 Acquired absence of both cervix and uterus; Z90.49 Acquired absence of other specified parts of digestive tract; Z98.890 Other specified postprocedural states; Z82.49 Family history of ischemic heart disease and other diseases of the circulatory system; Z83.3 Family history of diabetes mellitus; Z80.0 Family history of malignant neoplasm of digestive organs; Z93.0 Tracheostomy status; Z86.010 Personal history of colon polyps
CPT/HCPCS: 45380; 45385; J7030 ×2; J3490; J2704; J2371; A4620; A4215 ×2; A4223; A7002; A4222; A4221; A4663; A4606

== ENCOUNTER → 2024-05-20 | Outpatient (CLI) | payer OTHER, MEDICARE ==
[~2024-05-20] MED LIST changes: -VITA100049 PO; +VITA100059 PO
== END | disposition home or self-care (01) ==
LOC: RAH 13:00
PROVIDERS: ATTEND Nurse Practitioner Family
DX: C32.8 Malignant neoplasm of overlapping sites of larynx (principal); J95.09 Other tracheostomy complication; R59.0 Localized enlarged lymph nodes
CPT/HCPCS: 76536

== ENCOUNTER 2024-10-19 06:23 | Day surgery (SDC) | payer OTHER, MEDICARE ==
[2024-10-19] VITALS (10 sets, daily range): BP systolic 87–108; BP diastolic 52–66; PULSE 59–84; RESP 18–23; TEMP 97.2–97.9
[~2024-10-19] VITALS: Ht 149.9 cm; Wt 59.0 kg
[2024-10-19] MEDS ORDERED: KETO5DRO75 OP (07:34)
[2024-10-19] MEDS ORDERED: KETO5DRO75 OU (07:34)
[2024-10-19] MEDS ORDERED: PANT40TA54 PO (07:34)
[2024-10-19] MEDS ORDERED: CLOT10TR PO (07:34)
[2024-10-19] MEDS ORDERED: AMOX500C2 PO (07:34)
[2024-10-19] MEDS ORDERED: FLUT15.845 NS (07:34)
[2024-10-19] MEDS ORDERED: CHOL500051 PO (07:34)
[2024-10-19] MEDS ORDERED: LATA2.5D14 OU (07:34)
[2024-10-19] MEDS ORDERED: LEVO75CA5 PO (07:34)
[2024-10-19] MEDS: 0.9%NACL 1000ML 1,000 ML IV ONE (07:38)
[2024-10-19] MEDS ORDERED: BENZOCAINE 20% 57 GM SPRAY ONE (08:20)
[2024-10-19] MEDS ORDERED: proPOFol 10 MG/ML 20ML VIAL IV ONE (08:35)
--- NOTE | 2024-10-19 10:11 | NUR ---
Full and complete discharge instructions given to Patient and Family both verbally and in writing. All questions answered. Voiced understanding to EGD precautions and new Prescription. Patient denies c/o pain or discomfort. Voided moderate amount of clear yellow urine. PIV removed with catheter tip intact. W/C to POV with Sister.
== END 2024-10-19 10:10 | disposition home or self-care (01) ==
LOC: ENDO 06:23 → DAH 06:23 → ENDO 10:10
PROVIDERS: ATTEND Internal Medicine
DX: R13.10 Dysphagia, unspecified (principal); K22.2 Esophageal obstruction; K44.9 Diaphragmatic hernia without obstruction or gangrene; K57.30 Diverticulosis of large intestine without perforation or abscess without bleeding; K64.0 First degree hemorrhoids; Z93.0 Tracheostomy status; E55.9 Vitamin D deficiency, unspecified; Z79.899 Other long term (current) drug therapy; Z98.890 Other specified postprocedural states; E78.5 Hyperlipidemia, unspecified; D64.9 Anemia, unspecified; K29.70 Gastritis, unspecified, without bleeding
CPT/HCPCS: 43235; J7030 ×2; J2704; A4215; A4223; A7002; A4222; A4221; A4663; A4606; J3490

== ENCOUNTER 2025-07-26 05:40 | Day surgery (SDC) | payer OTHER, MEDICAID ==
[~2025-07-26] VITALS: Ht 152.4 cm; Wt 60.8 kg
[2025-07-26] VITALS (13 sets, daily range): BP systolic 87–153; BP diastolic 55–120; PULSE 69–89; RESP 12–23; TEMP 97.2–97.7
[~2025-07-26 05:40] MED LIST changes: +AMOX500C2 PO; -ASCO500T92 PO; -CHOL100046 PO; +CHOL500051 PO; +CLOT10TR PO; -FISH1CAP20 PO; +FLUT15.845 NS; +KETO5DRO75 OP; +LATA2.5D7 OU; +LEVO75CA6 PO; -LEVO75TA10 PO; -LOTE8.3D OU; -NEO/5DRO4 OU; +PANT40TA54 PO; -PRAV20TA4 PO; +PRAV20TA59 PO; -TRAZ-185 PO; -VITA100059 PO
[2025-07-26] MEDS ORDERED: LEVO100C5 PO (06:30)
[2025-07-26] MEDS ORDERED: MIDO5TAB4 PO (06:30)
[2025-07-26] MEDS ORDERED: AMOX1TAB16 PO (06:30)
[2025-07-26] MEDS: 0.9%NACL 1000ML 1,000 ML IV ONE (06:31)
--- NOTE | 2025-07-26 09:29 | NUR ---
Full and complete discharge instructions given to Patient and Family both verbally and in writing. Explained GI procedure precautions and follow up. All questions answered.Full and complete discharge instructions given to Patient and Family both verbally and in writing. Explained GI procedure precautions and follow up. Trach self cleared with scant serosangious phlegm out with Yaunker. No sign of active bleeding. Sats 97%. All questions answered. PIV removed with catheter tip intact. Family at bedside appearing supportive. W/C to POV with Family to home
== END 2025-07-26 09:27 | disposition home or self-care (01) ==
LOC: SUH 05:40 → DAH 05:40 → SUH 09:27
PROVIDERS: ATTEND Internal Medicine Gastroenterology
DX: K22.2 Esophageal obstruction (principal); K44.9 Diaphragmatic hernia without obstruction or gangrene; K29.50 Unspecified chronic gastritis without bleeding; R10.13 Epigastric pain; K57.30 Diverticulosis of large intestine without perforation or abscess without bleeding; K64.0 First degree hemorrhoids; E55.9 Vitamin D deficiency, unspecified; M81.0 Age-related osteoporosis without current pathological fracture; M19.90 Unspecified osteoarthritis, unspecified site; K21.9 Gastro-esophageal reflux disease without esophagitis; Z85.21 Personal history of malignant neoplasm of larynx; Z90.710 Acquired absence of both cervix and uterus; Z90.49 Acquired absence of other specified parts of digestive tract; Z98.890 Other specified postprocedural states; Z86.0100 Personal history of colon polyps, unspecified; Z93.0 Tracheostomy status; Z79.899 Other long term (current) drug therapy
CPT/HCPCS: 43249; J7030; J2704; C1726; A4215 ×2; A4222; A4221; A4663; A4216; A4606; A4223 ×2; J3490

== ENCOUNTER → 2025-08-04 | Outpatient (CLI) | payer OTHER, MEDICAID ==
[~2025-08-04] MED LIST changes: +AMOX1TAB16 PO; -AMOX500C2 PO; -CHOL500051 PO; -CLOT10TR PO; -DOCU100C33 PO; -FLUT15.845 NS; -KETO5DRO75 OP; -LATA2.5D7 OU; +LEVO100C5 PO; -LEVO75CA6 PO; +MIDO5TAB4 PO; -PANT40TA54 PO; -PRAV20TA59 PO
--- NOTE | 2025-08-05 09:39 | HMCIMG ---
US THYROID/NECK HISTORY: Hypothyroidism TECHNIQUE: Real-time thyroid ultrasound was performed. Prior study from 05/20/2024 is available. FINDINGS: Status post thyroidectomy.. There are small lymph nodes seen the base of the neck measuring 0.5 x 0.4 cm the second measuring 0.4 x 0.3 cm. This is unchanged from prior ultrasound. IMPRESSION: Status post thyroidectomy 2 small benign-appearing lymph node which was seen before and appears to be stable and unchanged.
== END | disposition home or self-care (01) ==
LOC: RAH 14:20
PROVIDERS: ATTEND Internal Medicine
DX: E03.9 Hypothyroidism, unspecified (principal)
CPT/HCPCS: 76536